=== PATIENT | female | born 1995 | race Caucasian/White ===

== ENCOUNTER 2018-11-18 18:30 | Emergency (ER) | payer MEDICAID ==
[~2018-11-18] VITALS: Ht 154.9 cm; Wt 63.6 kg
[2018-11-18 18:52] VITALS: BP 107/68
--- NOTE | 2018-11-18 19:45 | NUR ---
PT AMBULATED W/ STEADY GAIT TO BED 4.
--- NOTE | 2018-11-18 19:50 | NUR ---
PT BIB MOTHER C/O COUGH/DIFF BREATHING SINCE YESTERDAY. PT REPORTS 9/10 ACHING CHEST PAIN, HEADACHE AND THROAT PAIN. PT BREATHING EQUAL AND MILD LABORING; LUNG SOUNDS COARSE THROUGH OUT. PT ACTING APPROPRIATLY, SPEAKING IN CLEAR AND COMPLETE SENTENCES. PT PLACED IN GOWN AND ATTACHED TO BEDSIDE SHEET SEWER. SAFETY PRECAUTIONS IN PLACE. PENDING ERMD EVAL. WILL CONTINUE TO MONITOR. DENIES PMH NKA
[2018-11-18] MEDS ORDERED: BENZONATATE 100 MG CAPLF PO PRN (19:55)
[2018-11-18] MEDS ORDERED: predniSONE 20 MG TAB PO ONE (19:55)
[2018-11-18] MEDS ORDERED: ALBUTEROL 0.083% 2.5 MG/3 ML NEBU INH ONE (19:55)
--- NOTE | 2018-11-18 20:00 | NUR ---
WAITING FOR ON-CALL PHARMACY FOR PT MEDICATION ORDER.
--- NOTE | 2018-11-18 20:04 | NUR ---
X-Ray at bedside.
--- NOTE | 2018-11-18 20:05 | NUR ---
RT AT BEDSIDE.
--- NOTE | 2018-11-18 20:49 | NUR ---
PT ON CELL PHONE TALKING AND LAUGHING, SPEAKING IN CLEAR AND COMPLETE SENTENCES. BREATHING EQUAL AND UNLABORED. PT STATES SHE FEELS SOME REIEF FROM BREATHING TX, LUNG SOUNDS CLEAR BL.
--- NOTE | 2018-11-18 21:13 | NUR ---
Patient discharged with v/s stable. Patient acting appropriatly, states she can breathe better and feels better, denies pain at this time. Written and verbal after care instructions given and explained. Patient alert, oriented and verbalized understanding of instructions. Ambulatory with steady gait. All questions addressed prior to discharge. ID band removed. Patient advised to follow up with PMD. Rx of Albuterol, Prednisone, and Tessalon given. Patient educated on indication of medication including possible reaction and side effects. Opportunity to ask questions provided and answered.
[2018-11-18 21:28] VITALS: BP 109/57
== END 2018-11-18 21:13 | disposition home or self-care (01) ==
LOC: MED 18:30
DX: J06.9 Acute upper respiratory infection, unspecified (principal); J98.01 Acute bronchospasm
CPT/HCPCS: 71045; 99283; J7512; J7613; Q0092